=== PATIENT | male | born 1995 | race Caucasian/White ===

== ENCOUNTER 2016-09-30 20:19 | Emergency (ER) | payer OTHER, SELFPAY ==
[2016-09-30] MEDS ORDERED: hydrOXYzine 25 MG TAB ONE (20:44)
[2016-09-30] MEDS ORDERED: methylPREDNISolone Sod Succ/PF 125 MG/2 ML VIAL ONE (20:44)
== END 2016-09-30 21:09 | disposition home or self-care (01) ==
LOC: BURERS 20:19
DX: T63.461A Toxic effect of venom of wasps, accidental (unintentional), initial encounter (principal)
CPT/HCPCS: 96372; J2930